=== PATIENT | male | born 1960 | race Caucasian/White ===

== ENCOUNTER 2020-04-13 07:17 | Day surgery (SDC) | payer OTHER, SELFPAY ==
[~2020-04-13] VITALS: Ht 167.6 cm; Wt 85.3 kg
[2020-04-13] MEDS ORDERED: MIDAZOLAM 2 MG/2 ML VIAL ONE (09:12)
[2020-04-13] MEDS ORDERED: fentaNYL 0.05 MG/ML VIAL ONE (09:12)
[2020-04-13] MEDS ORDERED: LIDOCAINE 2% 100 MG/5 ML UJET TP ONE (09:13)
[2020-04-13] MEDS ORDERED: MIDAZOLAM 2 MG/2 ML VIAL IVP ONE (09:35)
[2020-04-13] MEDS ORDERED: fentaNYL 0.05 MG/ML VIAL IVP ONE (09:35)
== END 2020-04-13 11:25 | disposition home or self-care (01) ==
LOC: MDS 07:17 → MMU 07:18 → MDS 11:25
PROVIDERS: ATTEND Internal Medicine Gastroenterology
DX: K62.5 Hemorrhage of anus and rectum (principal); Z86.010 Personal history of colon polyps; Z87.891 Personal history of nicotine dependence; K52.9 Noninfective gastroenteritis and colitis, unspecified; Z79.899 Other long term (current) drug therapy; K21.9 Gastro-esophageal reflux disease without esophagitis; E11.9 Type 2 diabetes mellitus without complications; Z98.890 Other specified postprocedural states
CPT/HCPCS: 36415; 45378; 82948; J2250; J3010; U0003-CS

== ENCOUNTER 2021-09-06 07:43 | Day surgery (SDC) | payer OTHER, SELFPAY ==
[~2021-09-06] VITALS: Ht 165.1 cm; Wt 83.9 kg
[2021-09-06] MEDS ORDERED: diphenhydrAMINE 50 MG/ML VIAL ONE (11:07)
[2021-09-06] MEDS ORDERED: LIDOCAINE 2% 100 MG/5 ML UJET TP ONE ×2 (11:08→11:20)
[2021-09-06] MEDS ORDERED: fentaNYL citrate 0.05 MG/ML VIAL ONE (11:08)
[2021-09-06] MEDS ORDERED: MIDAZOLAM 2 MG/2 ML VIAL ONE (11:08)
[2021-09-06] MEDS ORDERED: MIDAZOLAM 2 MG/2 ML VIAL IVP ONE (11:20)
[2021-09-06] MEDS ORDERED: fentaNYL citrate 0.05 MG/ML VIAL IVP ONE (11:20)
== END 2021-09-06 12:02 | disposition home or self-care (01) ==
LOC: MOR 07:43 → MMU 07:44 → MOR 12:02
PROVIDERS: ATTEND Internal Medicine Gastroenterology
DX: Z12.11 Encounter for screening for malignant neoplasm of colon (principal); K52.9 Noninfective gastroenteritis and colitis, unspecified; K62.5 Hemorrhage of anus and rectum; Z86.010 Personal history of colon polyps; Z87.891 Personal history of nicotine dependence; Z79.84 Long term (current) use of oral hypoglycemic drugs; Z79.899 Other long term (current) drug therapy; Z20.822 Contact with and (suspected) exposure to COVID-19
CPT/HCPCS: 45385; 87426; J2250; J3010; J1200

== ENCOUNTER 2022-10-20 16:37 | Emergency (ER) | payer OTHER ==
[~2022-10-20] VITALS: Ht 165.1 cm; Wt 85.4 kg
--- NOTE | 2022-10-20 16:47 | NUR ---
BIB SELF C/O 6/10 LEFT FLANK PAIN X 8 DAYS. BLOOD SUGAR 192 AT THIS TIME. PMH: PRE DM, HTN
--- NOTE | 2022-10-20 17:24 | NUR ---
PT AMBULATED TO BED 05.
[2022-10-20 18:34] LABS: BASOPHILS # (AUTO) 0.1 K/uL (0.00-0.22); EOSINOPHILS # (AUTO) 0.2 K/uL (0-0.4); EOSINOPHILS % (AUTO) 2.7 % (0.0-4.0); HEMATOCRIT 41.6 % (36-52); HEMOGLOBIN 14.5 g/dL (12.0-18.0); LYMPHOCYTES # (AUTO) 2.6 K/uL (2.0-11.5); LYMPHOCYTES % (AUTO) 33.7 % (20.5-51.1); MEAN CORPUSCULAR HEMOGLOBIN 30 pg (27-31); MEAN CORPUSCULAR HGB CONC 35 g/dL (33-37); MEAN CORPUSCULAR VOLUME 86.9 fL (80-94); MONOCYTES # (AUTO) 0.7 K/uL (0.8-1.0); MONOCYTES % (AUTO) 9.9 % (1.7-9.3); NEUTROPHILS % (AUTO) 52.7 % (42.2-75.2); PLATELET COUNT (AUTO) 201 K/uL (140-450); RED BLOOD CELL COUNT(AUTO) 4.79 MIL/uL (4.20-6.10); WHITE BLOOD COUNT (AUTO) 7.6 K/uL (4.8-10.8)
[2022-10-20 18:47] LABS: ALBUMIN 3.3 g/dL (3.4-5.0); ANION GAP 11.4 (8-16); CARBON DIOXIDE 30.2 mmol/L (21-32); CREATININE 0.8 mg/dL (0.6-1.3); POTASSIUM 3.6 mmol/L (3.5-5.1); TOTAL BILIRUBIN 1.2 mg/dL (0.0-1.0)
--- NOTE | 2022-10-20 19:11 | NUR ---
Pt taken to CT via w/c.
[2022-10-20 19:50] LABS: APPEARANCE,URINE CLEAR (CLEAR); BILIRUBIN,URINE NEGATIVE (NEGATIVE); BLOOD, URINE NEGATIVE (NEGATIVE); COLOR,URINE YELLOW (YELLOW); LEUKOCYTE ESTERASE ,URINE NEGATIVE (NEGATIVE); NITRITE, URINE NEGATIVE (NEGATIVE); UGLUCOSE 2+ (NEGATIVE)
[2022-10-20] MEDS ORDERED: IBUP-2213 PO (20:26)
--- NOTE | 2022-10-20 21:27 | NUR ---
Patient discharged with v/s stable. Written and verbal after care instructions given and explained. Patient alert, oriented and verbalized understanding of instructions. Ambulatory with steady gait. All questions addressed prior to discharge. ID band removed. Patient advised to follow up with PMD. Rx of IBUPROFEN given. Patient educated on indication of medication including possible reaction and side effects. Opportunity to ask questions provided and answered. DX: FATTY LIVER DISEASE, DIVERTICULOSIS
== END 2022-10-20 21:27 | disposition home or self-care (01) ==
LOC: MED 16:37
DX: R10.32 Left lower quadrant pain (principal); E11.9 Type 2 diabetes mellitus without complications; I10 Essential (primary) hypertension; Z79.899 Other long term (current) drug therapy
CPT/HCPCS: 36415; 74177; 80053; 81003; 82948; 83690; 85025; 93005; 99285; Q9967

== ENCOUNTER 2024-02-22 01:17 | Emergency (ER) | payer OTHER ==
[~2024-02-22] VITALS: Ht 167.6 cm; Wt 81.6 kg
[~2024-02-22 01:17] MED LIST: IBUP-2213 PO
[2024-02-22 01:24] VITALS: BP 161/99; PULSE 78; RESP 18; TEMP 98; O2SAT 98
[2024-02-22 07:06] LABS: ANION GAP 12.6 (8-16); CALCIUM 9.2 mg/dL (8.5-10.1); CARBON DIOXIDE 23.7 mmol/L (21-32); CREATININE 0.7 mg/dL (0.6-1.3); POTASSIUM 3.3 mmol/L (3.5-5.1)
[2024-02-22 07:21] LABS: BASOPHILS # (AUTO) 0.1 K/uL (0.00-0.22); BASOPHILS % (AUTO) 0.9 % (0.0-2.0); EOSINOPHILS # (AUTO) 0.3 K/uL (0-0.4); EOSINOPHILS % (AUTO) 4.2 % (0.0-4.0); HEMATOCRIT 43.7 % (36-52); HEMOGLOBIN 15.5 g/dL (12.0-18.0); LYMPHOCYTES # (AUTO) 2.5 K/uL (2.0-11.5); LYMPHOCYTES % (AUTO) 32.5 % (20.5-51.1); MEAN CORPUSCULAR HEMOGLOBIN 30 pg (27-31); MEAN CORPUSCULAR HGB CONC 35 g/dL (33-37); MEAN CORPUSCULAR VOLUME 85.8 fL (80-94); MONOCYTES # (AUTO) 0.7 K/uL (0.8-1.0); MONOCYTES % (AUTO) 9.4 % (1.7-9.3); PLATELET COUNT (AUTO) 225 K/uL (140-450); RED BLOOD CELL COUNT(AUTO) 5.09 MIL/uL (4.20-6.10); RED CELL DISTRIBUTION WIDTH 13.1 % (11.6-13.7); WHITE BLOOD COUNT (AUTO) 7.6 K/uL (4.8-10.8)
[2024-02-22 07:22] LABS: MAGNESIUM 2.1 mg/dL (1.8-2.4); PHOSPHORUS 3.8 mg/dL (2.5-4.9); THYROID STIMULATING HORMONE 4.09 uIU/mL (0.34-3.74)
[2024-02-22 08:02] VITALS: BP 136/87; PULSE 65; RESP 14; TEMP 98; O2SAT 98
== END 2024-02-22 08:01 | disposition home or self-care (01) ==
LOC: MED 01:17
DX: R00.2 Palpitations (principal); R06.02 Shortness of breath; Z79.899 Other long term (current) drug therapy
CPT/HCPCS: 36415; 80048; 83735; 84100; 84443; 84484; 85025; 93005; 99284

== ENCOUNTER 2024-03-26 20:19 | Emergency (ER) | payer OTHER ==
[~2024-03-26] VITALS: Ht 167.6 cm; Wt 80.3 kg
[2024-03-26 20:26] VITALS: BP 130/73; PULSE 71; RESP 18; TEMP 97.2; O2SAT 98
[2024-03-26 21:12] LABS: BASOPHILS # (AUTO) 0.1 K/uL (0.00-0.22); BASOPHILS % (AUTO) 1.2 % (0.0-2.0); EOSINOPHILS # (AUTO) 0.3 K/uL (0-0.4); EOSINOPHILS % (AUTO) 4.2 % (0.0-4.0); HEMATOCRIT 43.8 % (36-52); HEMOGLOBIN 15.6 g/dL (12.0-18.0); LYMPHOCYTES # (AUTO) 1.6 K/uL (2.0-11.5); LYMPHOCYTES % (AUTO) 21.6 % (20.5-51.1); MEAN CORPUSCULAR HEMOGLOBIN 31 pg (27-31); MEAN CORPUSCULAR HGB CONC 36 g/dL (33-37); MEAN CORPUSCULAR VOLUME 86.7 fL (80-94); MONOCYTES # (AUTO) 0.8 K/uL (0.8-1.0); MONOCYTES % (AUTO) 11.6 % (1.7-9.3); NEUTROPHILS # (AUTO) 4.5 K/uL (1.8-7.7); NEUTROPHILS % (AUTO) 61.4 % (42.2-75.2); PLATELET COUNT (AUTO) 209 K/uL (140-450); RED BLOOD CELL COUNT(AUTO) 5.05 MIL/uL (4.20-6.10); RED CELL DISTRIBUTION WIDTH 14.2 % (11.6-13.7); WHITE BLOOD COUNT (AUTO) 7.3 K/uL (4.8-10.8)
[2024-03-26 21:26] LABS: ANION GAP 10.8 (8-16); CALCIUM 9.2 mg/dL (8.5-10.1); CARBON DIOXIDE 27.6 mmol/L (21-32); POTASSIUM 3.4 mmol/L (3.5-5.1)
[2024-03-26 21:28] VITALS: BP 130/73; PULSE 71; RESP 18; TEMP 97.2; O2SAT 98
[2024-03-26 21:28] LABS: INR 1.03 (0.8-1.2); PARTIAL THROMBOPLASTIN TIME 29.2 secs (22-35.6); PROTHROMBIN TIME 10.8 secs (10.8-13.4)
[2024-03-26] MEDS ORDERED: KETOROLAC 30 MG/ML VIAL IVP ONE (22:05)
[2024-03-26] MEDS: ACETAMINOPHEN EXTRA STRENGTH 500 MG TAB PO ONE (22:12)
[2024-03-26] MEDS: KETOROLAC 30 MG/ML VIAL IM ONE (22:17)
[2024-03-31] MEDS ORDERED: NAPR-337 PO (02:55)
[2024-03-31] MEDS ORDERED: CEPH-588 PO (02:55)
== END 2024-03-26 22:26 | disposition home or self-care (01) ==
LOC: MED 20:19
DX: R07.89 Other chest pain (principal); I10 Essential (primary) hypertension; E11.9 Type 2 diabetes mellitus without complications; Z79.1 Long term (current) use of non-steroidal anti-inflammatories (NSAID)
CPT/HCPCS: 36415; 71045; 80048; 83880; 84484; 85025; 85379; 85610; 85730; 93005; 96372; 99285; J1885

== ENCOUNTER 2024-05-22 16:28 | Emergency (ER) | payer OTHER ==
[~2024-05-22] VITALS: Ht 167.6 cm; Wt 84.8 kg
[~2024-05-22 16:28] MED LIST changes: +CEPH-588 PO; +NAPR-337 PO
[2024-05-22 17:06] VITALS: BP 113/70; PULSE 86; RESP 18; TEMP 98.9; O2SAT 98
[2024-05-22 17:51] LABS: BASOPHILS % (AUTO) 0.6 % (0.0-2.0); EOSINOPHILS # (AUTO) 0.2 K/uL (0-0.4); EOSINOPHILS % (AUTO) 4.2 % (0.0-4.0); HEMOGLOBIN 15.5 g/dL (12.0-18.0); LYMPHOCYTES # (AUTO) 1.2 K/uL (2.0-11.5); LYMPHOCYTES % (AUTO) 22.7 % (20.5-51.1); MEAN CORPUSCULAR HEMOGLOBIN 30 pg (27-31); MEAN CORPUSCULAR HGB CONC 34 g/dL (33-37); MEAN CORPUSCULAR VOLUME 88.6 fL (80-94); MONOCYTES # (AUTO) 0.9 K/uL (0.8-1.0); MONOCYTES % (AUTO) 16.8 % (1.7-9.3); NEUTROPHILS # (AUTO) 2.9 K/uL (1.8-7.7); NEUTROPHILS % (AUTO) 55.7 % (42.2-75.2); PLATELET COUNT (AUTO) 171 K/uL (140-450); RED CELL DISTRIBUTION WIDTH 14.2 % (11.6-13.7); WHITE BLOOD COUNT (AUTO) 5.2 K/uL (4.8-10.8)
[2024-05-22 18:00] VITALS: BP 128/74; PULSE 94; RESP 18; TEMP 98.9; O2SAT 98
[2024-05-22 18:01] LABS: FLU A ANTIGEN negative (NEGATIVE); FLU B ANTIGEN negative (NEGATIVE)
[2024-05-22 18:03] LABS: ANION GAP 10.2 (8-16); CALCIUM 9.6 mg/dL (8.5-10.1); CARBON DIOXIDE 29.5 mmol/L (21-32); CREATININE 0.9 mg/dL (0.6-1.3); POTASSIUM 3.7 mmol/L (3.5-5.1)
[2024-05-22] MEDS: ACETAMINOPHEN EXTRA STRENGTH 500 MG TAB PO ONE (18:06)
[2024-05-22 18:07] LABS: INR 0.98 (0.8-1.2); PARTIAL THROMBOPLASTIN TIME 27.5 secs (22-35.6); PROTHROMBIN TIME 10.3 secs (10.8-13.4)
[2024-05-22] MEDS: KETOROLAC 30 MG/ML VIAL IM ONE (18:08)
== END 2024-05-22 19:26 | disposition home or self-care (01) ==
LOC: MED 16:28
DX: U07.1 COVID-19 (principal); R07.2 Precordial pain; I10 Essential (primary) hypertension; E11.9 Type 2 diabetes mellitus without complications; Z79.899 Other long term (current) drug therapy
CPT/HCPCS: 36415; 71045; 80048; 83880; 84484; 85025; 85610; 85730; 87426; 87804; 93005; 96372; 99285; J1885

== ENCOUNTER 2024-08-21 07:48 | Day surgery (SDC) | payer OTHER ==
[~2024-08-21] VITALS: Ht 165.1 cm; Wt 80.3 kg
[2024-08-21] MEDS ORDERED: fentaNYL citrate 0.05 MG/ML VIAL ONE (09:07)
[2024-08-21] MEDS ORDERED: MIDAZOLAM 5 MG/5 ML VIAL ONE (09:08)
[2024-08-21] MEDS: MIDAZOLAM 2 MG/2 ML VIAL IVP ONE (09:40)
== END 2024-08-21 12:46 | disposition home or self-care (01) ==
LOC: MDS 07:48 → MMU 07:48 → MDS 12:46
PROVIDERS: ATTEND Internal Medicine Gastroenterology
DX: R13.10 Dysphagia, unspecified (principal); K29.80 Duodenitis without bleeding; I10 Essential (primary) hypertension; K59.00 Constipation, unspecified; Z79.899 Other long term (current) drug therapy
CPT/HCPCS: 36415; 43239; 82948; 86677; J2250; J3010